=== PATIENT | female | born 1940 | race Caucasian/White ===

== ENCOUNTER 2019-06-02 09:09 | Outpatient (CLI) | payer MEDICARE, SELFPAY ==
[2019-06-02 09:27] LABS: Hematocrit 41.5 % (35.0-42.0); Hemoglobin 13.7 g/dL (11.7-13.8); Immature Platelet Fraction Pct 4.2 % (1.0-7.0); Mean Corpuscular Hemoglobin 31.8 pg (27.0-31.0); Mean Corpuscular Volume 96.3 fL (78.0-102.0); Mean Platelet Volume 10.1 fl (9.2-11.8); Platelet Count Result 149 K/mm3 (150-420); Red Blood Count 4.31 M/mm3 (4.20-5.40); Red Cell Distribution Width 13.2 % (11.6-14.4); White Blood Count 6.3 K/mm3 (4.8-10.8)
[2019-06-02 10:06] LABS: Anion Gap 14.3 mmol/L (7-16); Blood Urea Nitrogen 17 mg/dL (7-18); Calcium 9.1 mg/dL (8.5-10.1); Carbon Dioxide 28 mmol/L (21-32); Chloride 104 mmol/L (98-108); Estimated Glomerular Filt Rate 55; Glucose 109 mg/dL (70-99); Osmolality Calculated 296 mOsm/kg (285-295); Potassium 4.3 mmol/L (3.5-5.1); Sodium 142 mmol/L (136-145)
== END 2019-06-02 09:10 | disposition home or self-care (01) ==
PROVIDERS: PCP Internal Medicine
DX: T82.128A Displacement of other cardiac electronic device, initial encounter (principal)
CPT/HCPCS: 36415; 80048; 85027; 85055

== ENCOUNTER 2019-10-23 08:30 | Outpatient (CLI) | payer MEDICARE, SELFPAY ==
[2019-10-23 08:41] LABS: Basophils Absolute Auto 0.05 K/mm3 (0.00-0.10); Basophils Percent Auto 0.8 % (0.0-1.0); Eosinophils Absolute Auto 0.24 K/mm3 (0.02-0.50); Eosinophils Percent Auto 3.9 % (1.0-6.0); Hematocrit 42.1 % (35.0-42.0); Hemoglobin 14.3 g/dL (11.7-13.8); Immature Granulocyte Absolute 0.02 K/mm3 (0.00-0.00); Immature Granulocyte Percent A 0.3 % (0.0-0.0); Immature Platelet Fraction Pct 4.8 % (1.0-7.0); Lymphocytes Absolute Auto 1.26 K/mm3 (1.10-4.50); Lymphocytes Percent Auto 20.7 % (18.0-42.0); Mean Corpuscular Hemoglobin 32.5 pg (27.0-31.0); Mean Corpuscular Volume 95.7 fL (78.0-102.0); Mean Platelet Volume 10.9 fl (9.2-11.8); Monocytes Absolute Auto 0.62 K/mm3 (0.10-0.90); Monocytes Percent Auto 10.2 % (2.0-11.0); Neutrophils Absolute Auto 3.9 K/mm3 (1.7-7.2); Neutrophils Percent Auto 64.1 % (50.0-70.0); Platelet Count Result 145 K/mm3 (150-420); Red Cell Distribution Width 13.3 % (11.6-14.4); White Blood Count 6.1 K/mm3 (4.8-10.8)
[2019-10-23 09:46] LABS: Alanine Aminotransferase 22 U/L (14-59); Albumin Level 4.3 g/dL (3.4-5.0); Alkaline Phosphatase 110 U/L (46-116); Anion Gap 13.8 mmol/L (7-16); Aspartate Amino Transferase 17 U/L (15-37); Bilirubin,Total 0.7 mg/dL (0.00-1.00); Blood Urea Nitrogen 24 mg/dL (7-18); Carbon Dioxide 29 mmol/L (21-32); Chloride 102 mmol/L (98-108); Estimated Glomerular Filt Rate 41; Glucose 114 mg/dL (70-99); Magnesium 2.1 mg/dL (1.8-2.4); Osmolality Calculated 295 mOsm/kg (285-295); Potassium 4.8 mmol/L (3.5-5.1); Sodium 140 mmol/L (136-145); Total Protein 6.9 g/dL (6.4-8.2)
[2019-10-23 09:53] LABS: BNP 428 pg/mL (0-100)
== END 2019-10-23 08:31 | disposition home or self-care (01) ==
PROVIDERS: PCP Internal Medicine; Visit Provider Internal Medicine
DX: I50.9 Heart failure, unspecified (principal)
CPT/HCPCS: 36415; 80053; 83735; 83880; 85025; 85055

== ENCOUNTER 2020-02-02 14:13 | Outpatient (CLI) | payer MEDICARE, SELFPAY ==
[2020-02-02 14:30] LABS: Add Urine Microscopic? NO; Appearance Urine Clear (Clear); Bilirubin Urine Negative (Negative); Blood Urine Negative (Negative); Color Urine Yellow (Yellow); Glucose Urine UA Negative (Negative); Ketones Urine Negative (Negative); Leukocyte Esterase Ur Negative (Negative); Nitrate Urine Negative (Negative); Protein Urine Negative (Negative); Specific Grav Ur 1.015 (1.010-1.020); Urobilinogen Urine 0.2 mg/dL (0.2-1.0); pH Urine 6.5 (5.0-8.0)
== END 2020-02-02 14:14 | disposition home or self-care (01) ==
LOC: CHSLAB 14:15
PROVIDERS: PCP Internal Medicine; Visit Provider Internal Medicine
DX: N95.0 Postmenopausal bleeding (principal); R82.90 Unspecified abnormal findings in urine
CPT/HCPCS: 81003; 87086

== ENCOUNTER 2020-02-07 08:58 | Outpatient (CLI) | payer MEDICARE, SELFPAY ==
--- NOTE | ~2020-02-07 | US_ITS ---
EXAMINATION: US pelvic complete w TV DATE: 02/07/2020 09:26 INDICATION: Postmenopausal bleeding Comparison:No prior studies for comparison. TECHNIQUE: Multiple transabdominal and endovaginal sonographic images of the pelvis performed. FINDINGS: The uterus measures 6.4 x 4 x 5.2 cm. There is nabothian cysts. There are calcifications of the uterus, likely from fibroid changes. The endometrial complex measures 9 mm. The ovaries are not visualized, likely atrophic. IMPRESSION: 1. Thickened endomtrial complex. The differential diagnosis includes endometrial hyperplasia, polyp a nd carcinoma. Biopsy is recommended. Reviewed, dictated and finalized at location B. IMPRESSION: 1. Thickened endomtrial complex. The differential diagnosis includes endometria l hyperplasia, polyp and carcinoma. Biopsy is recommended.
== END 2020-02-07 08:59 | disposition home or self-care (01) ==
LOC: CHSIMG 09:01
PROVIDERS: PCP Internal Medicine; Visit Provider Internal Medicine
DX: N95.0 Postmenopausal bleeding (principal)
CPT/HCPCS: 76830; 76856

== ENCOUNTER 2020-06-28 08:31 | Outpatient (CLI) | payer MEDICARE, SELFPAY ==
[2020-06-28 08:44] LABS: Basophils Absolute Auto 0.06 K/mm3 (0.00-0.10); Basophils Percent Auto 1.1 % (0.0-1.0); Eosinophils Absolute Auto 0.18 K/mm3 (0.02-0.50); Eosinophils Percent Auto 3.3 % (1.0-6.0); Hematocrit 41.2 % (35.0-42.0); Hemoglobin 13.4 g/dL (11.7-13.8); Immature Granulocyte Absolute 0.02 K/mm3 (0.00-0.00); Immature Granulocyte Percent A 0.4 % (0.0-0.0); Lymphocytes Absolute Auto 1.07 K/mm3 (1.10-4.50); Lymphocytes Percent Auto 19.5 % (18.0-42.0); Mean Corpuscular HGB Conc 32.5 g/dL (32.0-36.0); Mean Corpuscular Hemoglobin 30.9 pg (27.0-31.0); Mean Corpuscular Volume 94.9 fL (78.0-102.0); Mean Platelet Volume 10.2 fl (9.2-11.8); Monocytes Absolute Auto 0.54 K/mm3 (0.10-0.90); Monocytes Percent Auto 9.9 % (2.0-11.0); Neutrophils Absolute Auto 3.6 K/mm3 (1.7-7.2); Neutrophils Percent Auto 65.8 % (50.0-70.0); Platelet Count Result 149 K/mm3 (150-420); Red Blood Count 4.34 M/mm3 (4.20-5.40); Red Cell Distribution Width 13.3 % (11.6-14.4); White Blood Count 5.5 K/mm3 (4.8-10.8)
[2020-06-28 09:00] LABS: BNP 445 pg/mL (0-100)
[2020-06-28 09:10] LABS: Alanine Aminotransferase 27 U/L (14-59); Albumin Level 4.2 g/dL (3.4-5.0); Alkaline Phosphatase 120 U/L (46-116); Anion Gap 7 mmol/L (8-16); Aspartate Amino Transferase 16 U/L (15-37); Blood Urea Nitrogen 23 mg/dL (7-18); Calcium 9.2 mg/dL (8.5-10.1); Carbon Dioxide 30 mmol/L (21-32); Chloride 101 mmol/L (98-108); Estimated Glomerular Filt Rate 45; Glucose 116 mg/dL (70-99); Magnesium 2.2 mg/dL (1.8-2.4); Osmolality Calculated 290 mOsm/kg (285-295); Potassium 4.7 mmol/L (3.5-5.1); Sodium 138 mmol/L (136-145)
== END 2020-06-28 08:32 | disposition home or self-care (01) ==
LOC: CHSLAB 08:34
PROVIDERS: PCP Internal Medicine; Visit Provider Internal Medicine
DX: I11.0 Hypertensive heart disease with heart failure (principal); I50.9 Heart failure, unspecified
CPT/HCPCS: 36415; 80053; 83735; 83880; 85025

== ENCOUNTER → 2020-08-20 01:55 | Outpatient (CLI) | payer MEDICARE, SELFPAY ==
[2020-08-20 19:23] LABS: SARS-CoV-2 RNA PCR Negative
== END ==
PROVIDERS: PCP Internal Medicine; Visit Provider Student in an Organized Health Care Education/Training Program
DX: Z01.812 Encounter for preprocedural laboratory examination (principal); Z20.822 Contact with and (suspected) exposure to COVID-19
CPT/HCPCS: C9803; U0003; U0005

== ENCOUNTER 2020-08-20 13:38 | Outpatient (CLI) | payer MEDICARE, SELFPAY ==
--- NOTE | 2020-08-20 13:45 | ECG_ITS ---
Measurements Intervals [place] Rate: 73 P: WI: 0 QRS: -17 QRSD: 174 T: 230 QT: 412 QTc: 457 Interpretive Statements ELECTRONIC VENTRICULAR PACEMAKER VENTRICULAR PREMATURE COMPLEXES BASELINE ARTIFACT- I, II, III, AVR, AVL, AVF, V1 NO FURTHER INTERPRETATION IS POSSIBLE ATYPICAL ECG Electronically Signed On 08-20-2020 14:01:37 CDT by Julio Zarco D.O.
[2020-08-20 14:51] LABS: Digoxin 0.5 ng/mL (0.8-2.0)
== END 2020-08-20 13:39 | disposition home or self-care (01) ==
LOC: ANHSURGERY 13:41
PROVIDERS: Anesthesiology; PCP Internal Medicine; Visit Provider Student in an Organized Health Care Education/Training Program
DX: Z01.818 Encounter for other preprocedural examination (principal); Z51.81 Encounter for therapeutic drug level monitoring; Z79.899 Other long term (current) drug therapy; I10 Essential (primary) hypertension
CPT/HCPCS: 36415; 80162; 93005

== ENCOUNTER 2020-08-23 00:59 | Day surgery (SDC) | payer MEDICARE, SELFPAY ==
[2020-08-19 08:41] VITALS: BMI 26.1
--- NOTE | 2020-08-22 09:10 | WPDANESEPPF ---
Anes - Initial Pre Proc Eval Procedure: Operation Date: 08/23/20 09:00 Proposed Procedures p Hysteroscopy, Dilation and Curettage, Myosure - Jennifer Rosenthal MD Date/Time: 08/22/20 09:10 Surgeon: Jennifer Rosenthal MD Pre Op Diagnosis: post menopausal bleeding Patient Data Age: 80 Gender: F Height: 1.63 m Weight: 69 kg Allergies Allergy/AdvReac Type Severity Reaction Status Date / Time sulfamethizole Allergy Unknown Itching Verified 08/23/20 07:37 trimethoprim Allergy Unknown Itching Verified 08/23/20 07:37 Home Medications Medication Instructions Recorded Confirmed Type carvedilol 25 mg tablet 25 mg PO Q12H 02/14/20 08/23/20 History cholecalciferol (vitamin D3) 25 25 mcg PO DAILY 02/14/20 08/23/20 History mcg (1,000 unit) capsule digoxin 125 mcg (0.125 mg) tablet 125 mcg PO QPM 02/14/20 08/23/20 History garlic 1,000 mg capsule 1,000 mg PO DAILY 02/14/20 08/23/20 History levothyroxine 50 mcg tablet 50 mcg PO QAM 02/14/20 08/23/20 History magnesium oxide 400 mg (241.3 mg 400 mg PO DAILY 02/14/20 08/23/20 History magnesium) tablet pravastatin 10 mg tablet 10 mg PO DAILY 02/14/20 08/23/20 History spironolactone 25 mg tablet 50 mg PO QAM 02/14/20 08/23/20 History Patient hx anesthesia problems: none Family hx anesthesia problems: none PMFSH Past Medical History Medical History (Updated 08/22/20 @ 13:40 by Jennifer Rosenthal MD) Atrial fibrillation Congestive heart failure History of vaginal delivery x 5 Hyperlipidemia Hypothyroidism Nephrolithiasis Pacemaker Presence of Watchman left atrial appendage closure device Surgical History Surgical History H/O removal of cyst from wrist History of appendectomy History of bladder surgery History of carpal tunnel surgery Family History Family History Mother Diabetes mellitus Family history of liver disease Family history of coronary artery disease Father Carcinoma of colon Sibling Family history of coronary artery disease Other Asthma Social History Social History Smoking status: Never smoker Alcohol intake: never Substance use: never Living arrangements: with family Additional living arrangements comments: [facility] Spiritual care concerns: No Anes - Eval Final PreProcedure Day of Procedure 08/22/20 09:10 Patient weight: overweight Heart: regular rate and rhythm Lungs: clear to auscultation and normal air movement Airway: Mallampati scale class II Neurological: alert and oriented Last oral intake: >/= 8 hours ASA classification: IV Emergent: no Anesthetic plan: proceed Anesthesia type and monitoring: general GIVS and standard monitoring Informed Consent: The patient's anesthetic plan and its attendant risks and benefits were discussed with the patient/family/POA. Questions were solicited and answers provided to the satisfaction of the patient/family/POA.
--- NOTE | 2020-08-22 12:43 | PM.IMHP ---
H&P: HPI History of Present Illness Date/Time: 08/22/20 12:43 Patient is an 80 year old woman who initially presented to gynecology office in 01/2020 with complaints of postmenopausal bleeding. Natural menopause at age 50. Patient reported no on call pharmacy technician issues until a few months prior to presentation when patient reported onset of intermittent vaginal bleeding. Patient states that bleeding was initially light, however, became heavier over time. She thought bleeding would subside, however, it persisted and she currently reports occasional bright red bleeding. Other times, she reports dark reddish brown discharge. Patient does wear pads and panty liners. Patient was seen by PCP and a pelvic ultrasound was performed showing endometrial stripe measuring 9 mm. An EMB was performed in 02/2020 showing benign proliferative endometrial tissue and an inflamed endometrial polyp. Recommendation was made for patient to be seen by on call pharmacy technician onc in [facility], however, patient declined saying travel was too difficult. Recommendation was made to proceed with a hysteroscopy, dilation and curettage, and possible MyoSure for further evaluation and hopefully management of symptoms. Due to family issues, however, patient was able to have procedure done until now. She is doing well today. Chief Complaint: postmenopausal bleeding endometrial polyp Review of Systems Review of Systems: All systems reviewed & are unremarkable except as noted in HPI and below Constitutional: Constitutional: Reports as per HPI, Reports no additional constitutional complaints, Denies chills, Denies fever(s), Denies headache(s) and Denies night sweats Eyes: Eyes: Reports as per HPI and Reports no additional eye complaints ENT: Reports system reviewed and no additional complaints, except as documented, Reports as per HPI, Reports Normal hearing present and Denies headache(s) Cardiovascular: Cardiovascular: Reports as per HPI, Reports no additional cardiovascular complaints, Denies chest pain and Denies dyspnea Respiratory: Respiratory: Reports as per HPI, Reports no additional respiratory complaints, Denies cough and Denies dyspnea Gastrointestinal: Gastrointestinal: Reports as per HPI, Reports no additional gastrointestinal complaints, Denies abdominal pain, Denies change in bowel habits, Denies change in stool character, Denies nausea and Denies vomiting Genitourinary: Genitourinary: Reports no additional female genitourinary complaints, Reports as per HPI, Reports abnormal vaginal bleeding, Denies genital lesions, Denies hot flashes, Denies dyspareunia, Denies pelvic pain, Denies sexual dysfunction, Denies urinary incontinence, Denies vaginal discharge, Denies vaginal dryness and Denies vaginal odor Musculoskeletal: Musculoskeletal: Reports no additional musculoskeletal complaints and Reports as per HPI Integumentary/Breasts: Skin/Breast: Reports system reviewed and no additional complaints, except as docu, Reports as per HPI, Denies breast pain and Denies nipple discharge Neurologic: Reports system reviewed and no additional complaints, except as documented, Reports as per HPI, Reports Normal hearing present and Denies headache(s) Psychiatric: Psychiatric: Reports no additional psychiatric complaints, Reports as per HPI, Denies anxiety and Denies depression Endocrine: Endocrine: Reports no additional endocrine complaints and Reports as per HPI Hematologic/Lymphatic: Hematologic/Lymphatic: Reports no additional hematologic/lymphatic complaints and Reports as per HPI Allergic/Immunologic: Allergic/Immunologic: Reports no additional allergic/immunologic complaints and Reports as per HPI PMFSH Past Medical History Medical History (Updated 08/22/20 @ 13:40 by Jennifer Rosenthal MD) Atrial fibrillation Congestive heart failure History of vaginal delivery x 5 Hyperlipidemia Hypothyroidism Nephrolithiasis Pacemaker Presence of Watchman left atrial appendage closure device Surgical History Surgical History (Revi
--- NOTE | 2020-08-23 07:19 | WPDHPUPDATE1 ---
History and Physical Update Update Date/Time: 08/23/20 07:19 History and Physical has been reviewed, including an updated exam of the patient. There are NO changes in the patient's condition. Risks, benefits, and alternatives have been discussed and questions answered. Patient agrees to proceed with procedure.
--- NOTE | 2020-08-23 07:23 | PM.PROC ---
Procedure Note - Detailed Date of procedure: 08/23/20 Pre-op diagnosis: post menopausal bleeding endometrial polyp Post-op diagnosis: same Procedure performed: hysteroscopy, dilation and curettage Description of procedure: The patient was taken to the operating room where she self-transferred to the operating room table. Patient was placed in the dorsal supine position. Anesthesia was administered and found to be adequate. The patient was repositioned in the dorsal lithotomy position with the use of [place] stirrups. She was prepped and draped in the usual sterile fashion. A red rubber catheter was used to drain the bladder of 100 cc of yellow urine. A bivalve speculum was inserted into the vagina. The cervix was visualized and the anterior lip of the cervix was grasped with a single-tooth tenaculum. A paracervical block with 1% plain lidocaine was performed. 5 cc of lidocaine was administered on either side. The cervix was serially dilated to accommodate a hysteroscope. The hysteroscope was advanced into the endometrial cavity and a general survey was performed. The endometrial cavity appeared pale and atrophic. No abnormalities were seen and there was no endometrial polyp identified. Bilateral tubal ostia were visualized. Several pictures were taken. The hysteroscope was removed. A medium sized rigid curette was then introduced into the endometrial cavity. All quadrants of the uterus were explored and a scant amount of tissue was obtained. The specimen was prepared to be sent to pathology for analysis. The tenaculum was removed. No bleeding was noted from the tenaculum puncture sites. The vagina was cleansed and dried. The speculum was removed. The remainder of the patient was also cleansed and dried. She was taken out of the dorsal lithotomy position and awakened from anesthesia without difficulty. She was transferred to the recovery room in stable condition. All sponge, lap, instrument counts were correct in the procedure. Anesthesia: MAC Surgeon: Jennifer Rosenthal MD Complaint Investigations Officer: None Estimated blood loss (mL): 5 IV fluids (mL): 700 Urine output (mL): 100 Drains: No Packing: No Pathology: yes (endometrial curettings) Complications: No immediate complications Condition: stable Disposition: same day Findings: hysteroscopic fluid: 350cc in/320cc out intraoperative findings: normal appearing endometrial cavity, bilateral tubal ostia seen
[2020-08-23] MEDS: LACTATED RINGERS 1,000 ML 30 ML IV CONT (07:40)
[2020-08-23] MEDS: ACETAMINOPHEN 500 MG TABLET 1000 MG PO (07:40)
[2020-08-23 07:48] VITALS: BP 136/82; PULSE 70; RESP 16; TEMP 36.3; O2SAT 98
[2020-08-23 08:56] VITALS: BP 101/43; PULSE 70; RESP 12; O2SAT 97
[2020-08-23 09:25] VITALS: BP 119/68; PULSE 71; RESP 14; O2SAT 98
[2020-08-23 09:55] VITALS: BP 135/65; PULSE 71; RESP 14
== END 2020-08-23 10:08 | disposition home or self-care (01) ==
PROVIDERS: PCP Internal Medicine; Visit Provider Student in an Organized Health Care Education/Training Program
PROC: 0U5B8ZZ Destruction of Endometrium, Via Natural or Artificial Opening Endoscopic (ICD-10-PCS; CPT 58563; principal; 2020-08-23 09:00)
DX: N95.0 Postmenopausal bleeding (principal); N85.8 Other specified noninflammatory disorders of uterus; I48.91 Unspecified atrial fibrillation; I50.9 Heart failure, unspecified; E78.5 Hyperlipidemia, unspecified; E03.9 Hypothyroidism, unspecified; Z95.0 Presence of cardiac pacemaker
CPT/HCPCS: 58558; 36415; 80162; 88305; 93005; A9270; C9803; J1100; J2405; J2704; J3010; J7120; U0003; U0005

== ENCOUNTER 2021-05-09 10:03 | Outpatient (CLI) | payer MEDICARE, SELFPAY ==
--- NOTE | ~2021-05-09 | XR_ITS ---
XR lumbar spine 2-3V DATE: 05/09/2021 10:40 INDICATION: Back pain radiating to legs TECHNIQUE: AP, lateral, coned lateral lumbosacral views COMPARISON: 02/17/2014 lumbar spine FINDINGS: There is mild rotatory dextroscoliosis of the lumbar spine. There is grade 1 anterolisthesis at L4-5 due to degenerative change noted at the apophyseal joints, n oted throughout the lumbar and lumbosacral area. Mildly severe degenerative disc disease at L1-2, L2-3, L3-4 and severe degenerative disc disease at L 4-5 and L5-S1. There is associated mild retrolisthesis at L2-3. Diffuse idiopathic skeletal hyperostosis of the lower thoracic spine. No lumbar spine fracture or bone destruction is evident. The lumbar pedicles appear intact. The sacroiliac joints appear normal. IMPRESSION: Mild dextroscoliosis Moderately severe to severe degenerative disc disease throughout the lumbar and lumbosacral spine, wi th associated mild retrolisthesis at L2-3 Prominent degenerative change at the apophyseal joints, with associated grade 1 anterolisthesis at L4 -5 Diffuse idiopathic skeletal hyperostosis of the thoracic spine Reviewed, dictated and finalized at location A. 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
[2021-05-09 10:21] LABS: Basophils Absolute Auto 0.04 K/mm3 (0.00-0.10); Basophils Percent Auto 0.6 % (0.0-1.0); Eosinophils Absolute Auto 0.11 K/mm3 (0.02-0.50); Eosinophils Percent Auto 1.7 % (1.0-6.0); Hematocrit 41.2 % (35.0-42.0); Immature Granulocyte Absolute 0.04 K/mm3 (0.00-0.00); Immature Granulocyte Percent A 0.6 % (0.0-0.0); Immature Platelet Fraction Pct 5.6 % (1.0-7.0); Lymphocytes Absolute Auto 1.06 K/mm3 (1.10-4.50); Lymphocytes Percent Auto 16.6 % (18.0-42.0); Mean Corpuscular HGB Conc 31.6 g/dL (32.0-36.0); Mean Corpuscular Hemoglobin 30.3 pg (27.0-31.0); Mean Platelet Volume 10.8 fl (9.2-11.8); Monocytes Absolute Auto 0.68 K/mm3 (0.10-0.90); Monocytes Percent Auto 10.6 % (2.0-11.0); Neutrophils Absolute Auto 4.5 K/mm3 (1.7-7.2); Neutrophils Percent Auto 69.9 % (50.0-70.0); Platelet Count Result 134 K/mm3 (150-420); Red Blood Count 4.29 M/mm3 (4.20-5.40); Red Cell Distribution Width 14.1 % (11.6-14.4); White Blood Count 6.4 K/mm3 (4.8-10.8)
[2021-05-09 11:13] LABS: Alanine Aminotransferase 21 U/L (14-59); Albumin Level 4.3 g/dL (3.4-5.0); Alkaline Phosphatase 102 U/L (46-116); Anion Gap 7 mmol/L (8-16); Aspartate Amino Transferase 16 U/L (15-37); Bilirubin,Total 1.1 mg/dL (0.00-1.00); Blood Urea Nitrogen 18 mg/dL (7-18); Calcium 9.4 mg/dL (8.5-10.1); Carbon Dioxide 31 mmol/L (21-32); Chloride 101 mmol/L (98-108); Digoxin 0.6 ng/mL (0.9-2.0); Estimated Glomerular Filt Rate 51; Glucose 113 mg/dL (70-99); Magnesium 2.2 mg/dL (1.8-2.4); NT Pro B Type Natriuretic Pept 2939 pg/mL (0-450); Osmolality Calculated 290 mOsm/kg (285-295); Potassium 4.1 mmol/L (3.5-5.1); Sodium 139 mmol/L (136-145); Total Protein 6.9 g/dL (6.4-8.2)
== END 2021-05-09 10:04 | disposition home or self-care (01) ==
PROVIDERS: PCP Internal Medicine; Visit Provider Internal Medicine
DX: I50.9 Heart failure, unspecified (principal); M54.9 Dorsalgia, unspecified
CPT/HCPCS: 36415; 72100; 80053; 80162; 83735; 83880; 85025; 85055; 86140

== ENCOUNTER 2021-11-04 10:41 | Outpatient (CLI) | payer MEDICARE, SELFPAY ==
[2021-11-04 11:06] LABS: Basophils Absolute Auto 0.04 K/mm3 (0.00-0.10); Basophils Percent Auto 0.7 % (0.0-1.0); Eosinophils Percent Auto 1.9 % (1.0-6.0); Hematocrit 40.3 % (35.0-42.0); Immature Granulocyte Absolute 0.01 K/mm3 (0.00-0.00); Immature Granulocyte Percent A 0.2 % (0.0-0.0); Lymphocytes Absolute Auto 1.08 K/mm3 (1.10-4.50); Lymphocytes Percent Auto 20.1 % (18.0-42.0); Mean Corpuscular HGB Conc 32.3 g/dL (32.0-36.0); Mean Corpuscular Hemoglobin 30.8 pg (27.0-31.0); Mean Corpuscular Volume 95.5 fL (78.0-102.0); Mean Platelet Volume 11.1 fl (9.2-11.8); Monocytes Absolute Auto 0.54 K/mm3 (0.10-0.90); Monocytes Percent Auto 10.1 % (2.0-11.0); Neutrophils Absolute Auto 3.6 K/mm3 (1.7-7.2); Platelet Count Result 135 K/mm3 (150-420); Red Blood Count 4.22 M/mm3 (4.20-5.40); Red Cell Distribution Width 13.8 % (11.6-14.4); White Blood Count 5.4 K/mm3 (4.8-10.8)
[2021-11-04 11:30] LABS: Alanine Aminotransferase 18 U/L (14-59); Albumin Level 4.2 g/dL (3.4-5.0); Alkaline Phosphatase 101 U/L (46-116); Anion Gap 7 mmol/L (8-16); Aspartate Amino Transferase 17 U/L (15-37); Bilirubin,Total 1.1 mg/dL (0.00-1.00); Blood Urea Nitrogen 22 mg/dL (7-18); Carbon Dioxide 28 mmol/L (21-32); Chloride 105 mmol/L (98-108); Digoxin 0.7 ng/mL (0.9-2.0); Estimated Glomerular Filt Rate 53; Glucose 105 mg/dL (70-99); NT Pro B Type Natriuretic Pept 2215 pg/mL (0-450); Osmolality Calculated 293 mOsm/kg (285-295); Potassium 4.4 mmol/L (3.5-5.1); Sodium 140 mmol/L (136-145)
[2021-11-04 11:48] LABS: CRP < 0.5 mg/dL (0.0-0.9)
== END 2021-11-04 10:42 | disposition home or self-care (01) ==
LOC: CHSLAB 10:46
PROVIDERS: PCP Internal Medicine; Visit Provider Internal Medicine
DX: E78.5 Hyperlipidemia, unspecified (principal); E03.9 Hypothyroidism, unspecified; I48.11 Longstanding persistent atrial fibrillation; I50.9 Heart failure, unspecified
CPT/HCPCS: 36415; 80053; 80162; 83880; 85025; 86140

== ENCOUNTER 2022-05-06 08:52 | Outpatient (CLI) | payer MEDICARE, SELFPAY ==
[2022-05-06 09:06] LABS: Add Urine Microscopic? NO; Appearance Urine Clear (Clear); Basophils Absolute Auto 0.05 K/mm3 (0.00-0.10); Basophils Percent Auto 0.9 % (0.0-1.0); Bilirubin Urine Negative (Negative); Blood Urine Negative (Negative); Color Urine Light Yellow (Yellow); Eosinophils Absolute Auto 0.13 K/mm3 (0.02-0.50); Eosinophils Percent Auto 2.4 % (1.0-6.0); Glucose Urine UA Negative (Negative); Hematocrit 40.5 % (35.0-42.0); Hemoglobin 13.3 g/dL (11.7-13.8); Immature Granulocyte Absolute 0.02 K/mm3 (0.00-0.00); Immature Granulocyte Percent A 0.4 % (0.0-0.0); Immature Platelet Fraction Pct 6.5 % (1.0-7.0); Ketones Urine Negative (Negative); Leukocyte Esterase Ur Negative LEU/UL (Negative); Lymphocytes Absolute Auto 1.01 K/mm3 (1.10-4.50); Lymphocytes Percent Auto 18.4 % (18.0-42.0); Mean Corpuscular HGB Conc 32.8 g/dL (32.0-36.0); Mean Corpuscular Hemoglobin 32.1 pg (27.0-31.0); Mean Corpuscular Volume 97.8 fL (78.0-102.0); Mean Platelet Volume 11.2 fl (9.2-11.8); Monocytes Absolute Auto 0.58 K/mm3 (0.10-0.90); Monocytes Percent Auto 10.5 % (2.0-11.0); Neutrophils Absolute Auto 3.7 K/mm3 (1.7-7.2); Neutrophils Percent Auto 67.4 % (50.0-70.0); Nitrate Urine Negative (Negative); Platelet Count Result 126 K/mm3 (150-420); Protein Urine Negative (Negative); Red Blood Count 4.14 M/mm3 (4.20-5.40); Red Cell Distribution Width 13.3 % (11.6-14.4); Urobilinogen Urine 0.2 mg/dL (0.2-1.0); White Blood Count 5.5 K/mm3 (4.8-10.8)
[2022-05-06 09:13] LABS: Hemoglobin A1C 5.9 % (<5.7)
[2022-05-06 09:50] LABS: Alanine Aminotransferase 22 U/L (14-59); Albumin Level 4.3 g/dL (3.4-5.0); Alkaline Phosphatase 110 U/L (46-116); Anion Gap 5 mmol/L (8-16); Aspartate Amino Transferase 15 U/L (15-37); Bilirubin,Total 0.8 mg/dL (0.00-1.00); Blood Urea Nitrogen 18 mg/dL (7-18); Carbon Dioxide 32 mmol/L (21-32); Chloride 102 mmol/L (98-108); Digoxin 0.4 ng/mL (0.9-2.0); Estimated Glomerular Filt Rate 57; Glucose 113 mg/dL (70-99); NT Pro B Type Natriuretic Pept 2636 pg/mL (0-450); Osmolality Calculated 290 mOsm/kg (285-295); Potassium 4.5 mmol/L (3.5-5.1); Sodium 139 mmol/L (136-145); Total Protein 6.9 g/dL (6.4-8.2)
== END 2022-05-06 08:53 | disposition home or self-care (01) ==
LOC: CHSLAB 08:55
PROVIDERS: PCP Internal Medicine; Visit Provider Internal Medicine
DX: I50.9 Heart failure, unspecified (principal); D69.6 Thrombocytopenia, unspecified; R73.03 Prediabetes
CPT/HCPCS: 36415; 80053; 80162; 81003; 83036; 83880; 85025; 85055

== ENCOUNTER 2022-08-14 11:58 | Outpatient (CLI) | payer MEDICARE, SELFPAY ==
--- NOTE | ~2022-08-14 | MM_ITS ---
EXAMINATION: MM screening [place] BI w james HISTORY: Screening mammogram TECHNIQUE: Craniocaudal and mediolateral oblique 3-D tomosynthesis images were obtained and synthetic 2-D images were generated. CAD analysis was submitted and interpreted. COMPARISON: 09/24/2017 and 07/03/2015 BREAST PARENCHYMAL COMPOSITION:There are scattered areas of fibroglandular density. FINDINGS: No suspicious mass, calcification, or architectural distortion are identified in either kurt ast to suggest malignancy. There has been no suspicious interval change. IMPRESSION: No mammographic evidence of malignancy. Recommend routine screening mammography in one year. BI-RADS Category 1: Negative Reviewed, dictated and finalized at location .
--- NOTE | ~2022-08-14 | DEXA_ITS ---
Bone Density Report Name: JACOBY TORREZ Age: 82 Sex: Female Ethnicity: White Date of : 1940 Indication: postmenopausal; screening for osteoporosis; height loss; Referring Provider: Andrew Meadows Study: Bone densitometry was performed. Exam Date: August 14, 2022 Accession number: [id number] Bone Density: Region BMD T-score Z-score Classification AP Spine(L1, L2, L3) 1.260 2.2 4.9 Normal Femoral Neck (Left) 0.708 -1.3 1.1 Osteopenia Total Hip (Left) 0.744 -1.6 0.6 Osteopenia Femoral Neck (Right) 0.644 -1.8 0.6 Osteopenia Total Hip (Right) 0.794 -1.2 1.0 Osteopenia Femoral Neck Mean 0.676 -1.6 0.8 Osteopenia Total Hip Mean 0.769 -1.4 0.8 Osteopenia World Health Organization criteria for BMD impression classify patients as: Normal (T-score at or above -1.0), Osteopenia (T-score between -1.0 and -2.5), or Osteoporosis (T-score at or below -2.5). 10-year Fracture Risk(1): Major Osteoporotic Fracture 15% Hip Fracture 4.4% Reported Risk Factors: [place] (), Neck BMD=0.644, BMI=25.7 (1) FRAX(R) Version 3.08. Fracture probability calculated for an untreated patient. Fracture probability may be lower if the patient has received treatment. Clinical Information Provided by Patient: Has used the following medications: Vitamin D Patient maximum height was 64 Menopause Age: 50 No regular weight bearing exercise Onset of menses at age 13 Number of children 5 Impression: The patient has low bone mass, based on the Right Femoral Neck T-score. Discussion: BONE DENSITY IS LOW AT ONE OR MORE SKELETAL SITES. This patient's lowest T-score is low at one or more skeletal sites. It meets the World Health Organization's (WHO) criteria for ?low bone mass? (T-score between -1.0 and -2.5). The patient's 10-year risk of fracture as calculated by FRAX is less than the threshold where pharmacological therapy is recommended by the National Osteoporosis Foundation (NOF). However, all treatment decisions require clinical judgment and consideration of individual patient factors, including patient preferences, comorbidities, previous drug use, risk factors not captured in the FRAX model (e.g., frailty, falls, vitamin D deficiency, increased bone turnover, interval significant decline in bone density) and possible under or overestimation of fracture risk by FRAX. The patient should follow a healthful lifestyle (good nutrition with adequate calcium and vitamin D, and appropriate weight-bearing exercise). Follow-Up: Consider repeating this study in 2 to 3 years to reassess this patient's status, or sooner if there is some new clinical indication. Reported by: Dr. Carlin Noe on 08/14/2022 12:56:00 PM. Reviewed, dictated an
== END 2022-08-14 11:59 | disposition home or self-care (01) ==
LOC: CHSIMG 12:01
PROVIDERS: PCP Internal Medicine; Visit Provider Internal Medicine
DX: Z12.31 Encounter for screening mammogram for malignant neoplasm of breast (principal); Z78.0 Asymptomatic menopausal state; M85.89 Other specified disorders of bone density and structure, multiple sites
CPT/HCPCS: 77063; 77067; 77080

== ENCOUNTER 2023-01-23 08:55 | Outpatient (CLI) | payer MEDICARE, SELFPAY ==
--- NOTE | ~2023-01-23 | XR_ITS ---
XR lumbar spine 2-3V DATE: 01/23/2023 09:24 INDICATION: Chronic right back pain TECHNIQUE: AP, lateral, coned lateral lumbosacral views COMPARISON: 05/09/2021 lumbar spine FINDINGS: There is osteopenia. There is levoscoliosis and diffuse idiopathic skeletal hyperostosis of the thoracic spine. There's mild lumbar dextroscoliosis. There is severe degenerative disc disease throughout the lumbar spine including loss of disc space he ight, vacuum phenomenon, degenerative spurring, from T12-L1 through L5-S1. There is associated mild r etrolisthesis at L1-2, L2-3 and L5-S1. There is degenerative change at the apophyseal joints as well with associated grade 1 anterolisthesis at L4-5. No fracture or bone destruction is evident. The included lower thoracic and lumbar pedicles appear in tact. The sacroiliac joints are intact. IMPRESSION: Severe degenerative disc disease throughout the lumbar and lumbosacral area, with associa ailyn mild retrolisthesis at several levels Degenerative changes apophyseal joints with grade 1 anterolisthesis at L4-5 Osteopenia Mild thoracic levoscoliosis and lumbar dextroscoliosis Reviewed, dictated and finalized at location A. IMPRESSION: Severe degenerative disc disease throughout the lumbar and lumbosac ral area, with associated mild retrolisthesis at several levels Degenerative changes apophyseal joints with grade 1 anterolisthesis at L4-5 Osteopenia Mild thoracic levoscoliosis and lumbar dextroscoliosis
== END 2023-01-23 08:56 | disposition home or self-care (01) ==
LOC: CHSLAB 09:00 → CHSIMG 09:04
PROVIDERS: PCP Internal Medicine; Visit Provider Internal Medicine
DX: M54.41 Lumbago with sciatica, right side (principal); M51.36 Other intervertebral disc degeneration, lumbar region; M85.89 Other specified disorders of bone density and structure, multiple sites; M41.86 Other forms of scoliosis, lumbar region
CPT/HCPCS: 72100

== ENCOUNTER 2023-01-28 09:53 | Outpatient (RCR) | payer MEDICARE, SELFPAY ==
--- NOTE | 2023-01-28 11:00 | OPREHPOC ---
Outpatient Therapy Plan of Care This is a Multidisciplinary Plan of Care that may contain components documented by all disciplines (PT, OT, and ST.) PT Problem 1 PT Problem #1 Knowledge Deficit PT Goal 1 Goal 1. independent and compliant with HEP to improve tolerance for continued skilled PT and exercises. Target Visit 6 PT Problem 2 PT Problem #2 Pain PT Goal 1 Goal 1. reduce pain at worst to 4/10 or less to improve her quality of life/functional activity performance. 2. centralization of radicular symptoms to the buttock and no further down the R LE. Target Visit 12 PT Problem 3 PT Problem #3 Impaired Flexibility PT Goal 1 Goal 1. improve bilateral hamstrings flexibility to less than 20 degrees tightness per the 90/90 test. 2. mild or less bilateral piriformis mm tightness. Target Visit 12 PT Problem 4 PT Problem #4 Impaired Functional Mobil PT Goal 1 Goal 1. patient to perform safe lifting mechanics with lifting 20lbs from floor to waist 2. no pain with lifting 20lbs from floor to waist 3. patient to sleep through the night 5x a week or more without increased lower back/R LE pain. 4. oswestry to display less than 10% functional deficits Target Visit 12
--- NOTE | 2023-01-28 11:00 | PTOPEVAL1 ---
Assessment and note entered by JT File, PT Evaluation Information Assessment Status Evaluation Diagnosis lumbago, R side sciatica Onset 12/27/22 Subjective Information patient reports she does have a pacemaker. she reports she is coming to therapy for pain in ther R side lower back. she reports she was told by the MD she has sciatica. she reports the pain goes down the R LE all the way down to the foot. she reports she has increased pain with bending over to lift anything, and carry anything. 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 she describes pain and numbness down the R LE. Reported Pain Level Pain Score 0: Self Report Assessment PT Clinical Summary mrs. yates is an 82 yo woman who presents to skilled PT services for evaluation and treatment of R sciatica. she presents with signs and symptoms of sciatica due to DDD of the lumbar spine. she would benefit from continued skilled PT to improve her objective/functional deficits and return to her prior level functional activity performance and quality of life. Plan of Care Interventions Hot Pack/Cold Pack,Manual Therapy,Neuro Re- education,Patient/Caregiver Educati,Therapeutic Activities,Therapeutic Exercise PT Services Indicated Yes Treatment Frequency and 3x weekly for 12 visits Duration These treatments will address the objective and functional deficits as defined above. The patient will be advanced safely and appropriately in order for the patient to progress towards his/her prior level of function. Additional exercises will be introduced and as well as a comprehensive home exercise program upon discharge, if needed, ?to ensure carryover of functional gains achieved in the clinic. This treatment plan has been reviewed and agreement upon by the patient.
== END 2023-02-23 20:00 | disposition home or self-care (01) ==
LOC: CHSPT 09:53
PROVIDERS: PCP Internal Medicine; Visit Provider Internal Medicine
DX: M54.41 Lumbago with sciatica, right side (principal)
CPT/HCPCS: 97110; 97150; 97161; 97530